=== PATIENT | male | born 1995 | race Two or more races ===

== ENCOUNTER 2017-07-18 22:19 | Emergency (ER) | payer OTHER ==
[~2017-07-18] VITALS: Ht 167.6 cm; Wt 54.4 kg
[2017-07-18 22:27] VITALS: BP 100/62
[2017-07-18] MEDS ORDERED: ACETAMINOPHEN ES 500 MG TABLET ONE (23:29)
[2017-07-18] MEDS ORDERED: ACETAMINOPHEN 325 MG TABLET PO ONE (23:30)
[2017-07-18 23:59] LABS: MONOTEST NEGATIVE (NEGATIVE)
== END 2017-07-19 00:48 | disposition home or self-care (01) ==
LOC: ER 22:28
DX: J02.9 Acute pharyngitis, unspecified (principal)
CPT/HCPCS: 36415; 86308; 87070; 87880; 99284; A4606; Z7610; 86403-TC

== ENCOUNTER 2021-06-06 22:29 | Emergency (ER) | payer OTHER ==
[~2021-06-06] VITALS: Ht 170.2 cm; Wt 65.8 kg
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
[2021-06-06] MEDS ORDERED: TDAP [DIPH/PERTUSSIS/TET] 0.5 ML VIAL IM ONE ×2 (22:59→23:00)
--- NOTE | 2021-06-07 02:12 | NUR ---
Patient discharged to home in stable condition. Written and verbal after care instructions given. Patient verbalizes understanding of instruction.
[2021-06-07 02:20] VITALS: BP 128/77
== END 2021-06-07 02:21 | disposition home or self-care (01) ==
LOC: ER 22:34
DX: S01.81XA Laceration without foreign body of other part of head, initial encounter (principal); S61.215A Laceration without foreign body of left ring finger without damage to nail, initial encounter; S61.211A Laceration without foreign body of left index finger without damage to nail, initial encounter; S61.213A Laceration without foreign body of left middle finger without damage to nail, initial encounter; Y04.2XXA Assault by strike against or bumped into by another person, initial encounter; Y93.9 Activity, unspecified; Y92.410 Unspecified street and highway as the place of occurrence of the external cause; Y99.9 Unspecified external cause status
CPT/HCPCS: 12002; 12013; 70450; 73130; 99284; A6403; 90715

== ENCOUNTER → 2021-06-13 | Emergency (ER) | payer OTHER ==
[~2021-06-13] VITALS: Ht 170.2 cm; Wt 63.5 kg
[~2021-06-13] MED LIST: MUPI22OI2 TP
[2021-06-13 18:37] VITALS: BP 130/64
--- NOTE | 2021-06-13 19:19 | NUR ---
Patient discharged to home in stable condition. Written and verbal after care instructions given. Patient verbalizes understanding of instruction. Pt ambulatory with a steady gait
== END | disposition home or self-care (01) ==
LOC: ER 18:21
DX: S61.412D Laceration without foreign body of left hand, subsequent encounter (principal); S01.81XD Laceration without foreign body of other part of head, subsequent encounter; Z59.00 Homelessness unspecified; X58.XXXD Exposure to other specified factors, subsequent encounter